=== PATIENT | female | born 1990 | race Hispanic/Latino ===

== ENCOUNTER 2017-11-06 08:49 | Emergency (ER) | payer SELFPAY ==
[~2017-11-06] VITALS: Ht 160 cm; Wt 82.8 kg
[2017-11-06] MEDS ORDERED: ONDANSETRON HCL INJ 2 MG/ML VIAL IV STA (09:14)
[2017-11-06] MEDS ORDERED: FAMOTIDINE 20 MG/2 ML VIAL IV STA (09:14)
[2017-11-06] MEDS ORDERED: MORPHINE SULFATE 2 MG/ML SYR IV STA (09:14)
[2017-11-06] MEDS ORDERED: SODIUM CHLORIDE 0.9% 1000ML 1,000 ML IV STA ×2 (09:14)
[2017-11-06 11:26] VITALS: BP 104/62
== END 2017-11-06 11:26 | disposition home or self-care (01) ==
LOC: FSED 08:49
DX: R10.11 Right upper quadrant pain (principal); R10.13 Epigastric pain; K80.70 Calculus of gallbladder and bile duct without cholecystitis without obstruction
CPT/HCPCS: 76705; 80048; 80076; 81003; 81025; 85025; 96374; 96375; 99284; J2270; J2405; J7030